=== PATIENT | male | born 1965 | race Caucasian/White ===

== ENCOUNTER 2018-11-20 12:42 | Observation (INO) | payer MEDICARE ==
[~2018-11-20] VITALS: Ht 185.4 cm; Wt 68.0 kg
[2018-11-20] MEDS ORDERED: PROZAC10 MG PO (12:55)
[2018-11-20] MEDS ORDERED: XANAX1 MG PO (12:55)
[2018-11-20 13:12] VITALS: BP 113/77
[2018-11-20 13:28] LABS: BASOPHILS 0.2 % (0-2); EOSINOPHILS 0 % (0-7); HEMOGLOBIN 18.3 g/dL (13.5-17.5); IMMATURE GRANULOCYTES 0.2 % (0-5); LYMPHOCYTES 22.7 % (15-50); MCH 38.1 pg (26.0-34.0); MCHC 38.1 g/dL (31.0-37.0); MEAN PLATELET VOLUME 11.2 fL (7.4-10.4); MONOCYTES 13.3 % (2-11); NEUTROPHILS 63.6 % (40-80); PLATELET COUNT 140 10x3/uL (130-400); RDW 12.7 % (11.5-14.5); WBC 5.4 10x3/uL (4.8-10.8)
[2018-11-20 13:41] LABS: APTT 29.7 SECONDS (22.8-39.4)
[2018-11-20 13:52] LABS: ALBUMIN 3.3 g/dL (3.4-5.0); ALKALINE PHOSPHATASE 88 U/L (46-116); ALT (SGPT) 18 U/L (10-68); BILIRUBIN - TOTAL 0.32 mg/dL (0.2-1.3); CALC OSMOLALITY 264 mosm/kg (275-300); CALCIUM 8.2 mg/dL (8.5-10.1); CHLORIDE - SERUM 101 mmol/L (98-107); CREATININE - SERUM 0.9 mg/dL (0.6-1.3); GLUCOSE 92 mg/dL (74-106); POTASSIUM - SERUM 3.1 mmol/L (3.5-5.1); SODIUM 134 mmol/L (136-145); UREA NITROGEN 5 mg/dL (7-18); eGFR NON AFRICAN AMERICAN > 90 mL/min (90-120)
[2018-11-20 14:00] LABS: CKMB 0.4 U/L (0.0-3.6); CREATINE KINASE 68 UL (21-232); MAGNESIUM - SERUM 1.8 mg/dL (1.8-2.4); TROPONIN-I < 0.017 ng/mL (0.000-0.060)
[2018-11-20 14:03] LABS: INR 1.03 (0.85-1.17)
--- NOTE | 2018-11-20 14:42 | NUR ---
PATIENT ASKED RN TO CALL MOTHER IN LAW, ROHAN BERNAL AT [phone]. TO INFORM THAT HE WILL BE ADMITTED FOR OBSERVATION.
--- NOTE | 2018-11-20 15:20 | NUR ---
PATIENT TO BE ADMITTED TO ROOM 2112. ATTEMPTED TO CALL REPORT AT EXT [phone]. TEVIN PLACED ME ON HOLD. WILL CONTINUE TO ATTEMPT HAND-OFF.
--- NOTE | 2018-11-20 15:52 | NUR ---
REPORT CALLED TO AALIYAH PITT. NO QUESTIONS. NO JARRELL IN THE ROOM, BUT WILL LET US KNOW WHEN IT'S AVAILABLE.
--- NOTE | 2018-11-20 16:03 | NUR ---
1553-RECEIVED REPORT FROM ED.
--- NOTE | 2018-11-20 17:02 | NUR ---
RECEIVED TO ROOM VIA WHEELCHAIR. PLACED ON HEART MONITOR. SALINE LOCK SEEN TO LEFT FA, FLUSHES WELL. STATES THAT HE NEEDS SOME MEDS FOR ANXIETY.
[2018-11-20 17:04] VITALS: BP 132/97; BMI 19.8
--- NOTE | 2018-11-20 17:26 | NUR ---
PLACED ON HEART MONITOR SHOWING ST, HR 115.
--- NOTE | 2018-11-20 17:28 | NUR ---
I CALLED FOR NEW ORDERS FOR PATIENT HE STATES THE LIBRUIM IS NOT WORKING AND HE IS "FREAKING OUT". I SPOKE WITH NATALIIA CHARLES AND RECEIVED A ONE TIME DOSE OF IV ATIVAN.
[2018-11-20 17:56] VITALS: BP 132/97
--- NOTE | 2018-11-20 17:58 | NUR ---
CALLED ARACELI IN THE PHARMACY TO RE-TIME THE LIBRUIM HE RECEIVED A DOSE IN THE ED AT 1506.
--- NOTE | 2018-11-20 18:08 | NUR ---
URINE FOR UA AND UDS SENT TO LAB ORDERED.
[2018-11-20 18:20] LABS: APPEARANCE CLEAR (CLEAR); BILIRUBIN NEGATIVE (NEGATIVE); COLOR YELLOW (YELLOW); GLUCOSE NEGATIVE (NEGATIVE); KETONE NEGATIVE (NEGATIVE); NITRITE NEGATIVE (NEGATIVE); PROTEIN NEGATIVE (NEGATIVE); SPECIFIC GRAVITY 1.015 (1.005-1.020); UROBILINOGEN NORMAL (NORMAL)
[2018-11-20 18:21] LABS: WHITE CELLS - URINE OCC /hpf (0-5)
[2018-11-20 18:22] LABS: BACTERIA FEW /hpf (NONE SEEN); MUCUS <1+ /lpf (NONE SEEN)
[2018-11-20 18:25] LABS: UDS - AMPHET NEGATIVE QUAL (NEGATIVE); UDS - BARB NEGATIVE QUAL (NEGATIVE); UDS - BENZO NEGATIVE QUAL (NEGATIVE); UDS - COCAINE NEGATIVE QUAL (NEGATIVE); UDS - OPIATE NEGATIVE QUAL (NEGATIVE); UDS - PCP NEGATIVE QUAL (NEGATIVE); UDS - THC POSITIVE QUAL (NEGATIVE)
[2018-11-20 20:00] VITALS: BP 112/76
[2018-11-20 20:14] LABS: CKMB 0.7 U/L (0.0-3.6); CREATINE KINASE 73 UL (21-232)
[2018-11-20 20:15] LABS: TROPONIN-I < 0.017 ng/mL (0.000-0.060)
--- NOTE | 2018-11-20 23:19 | NUR ---
PT RESTING IN BED. EYES CLOSED. NO SIGNS OF DISTRESS. BREATHING EVEN AND UNLABORED. IV SITE LT FA DRESSING CLEAN DRY AND INTACT. NO SIGNS OF INFECTION. BOWEL SOUNDS ACTIVE. NO LOWER LEG SWELLING PRESENT. SKIN CLEAN DRY AND INTACT. LUNG SOUNDS CLEAR. WILL CONTINUE PLAN OF CARE. CALL LIGHT IN REACH. BED LOWERED AND LOCKED. BED RAILS UP X2.
[2018-11-21] VITALS: BP 121/81
[2018-11-21 02:12] LABS: BASOPHILS 0.6 % (0-2); EOSINOPHILS 3.2 % (0-7); HEMATOCRIT 38.9 % (42.0-54.0); IMMATURE GRANULOCYTES 0.3 % (0-5); LYMPHOCYTES 28.2 % (15-50); MCH 36.2 pg (26.0-34.0); MCHC 35.5 g/dL (31.0-37.0); MEAN PLATELET VOLUME 10.7 fL (7.4-10.4); MONOCYTES 11.4 % (2-11); NEUTROPHILS 56.3 % (40-80); PLATELET COUNT 117 10x3/uL (130-400); RBC 3.81 10x6/uL (4.20-6.10); RDW 12.7 % (11.5-14.5); WBC 3.2 10x3/uL (4.8-10.8)
[2018-11-21 02:13] LABS: HEMOGLOBIN 13.8 g/dL (13.5-17.5); MCV 102.1 fL (80.0-100.0)
[2018-11-21 03:00] LABS: HEMATOCRIT 43.9 % (42.0-54.0)
[2018-11-21 03:17] LABS: ALBUMIN 2.6 g/dL (3.4-5.0); ALKALINE PHOSPHATASE 77 U/L (46-116); ALT (SGPT) 15 U/L (10-68); BILIRUBIN - TOTAL 0.47 mg/dL (0.2-1.3); CALC OSMOLALITY 269 mosm/kg (275-300); CALCIUM 7.8 mg/dL (8.5-10.1); CARBON DIOXIDE 28.1 mmol/L (21.0-32.0); CHLORIDE - SERUM 104 mmol/L (98-107); CKMB 0.5 U/L (0.0-3.6); CREATINE KINASE 42 UL (21-232); CREATININE - SERUM 0.9 mg/dL (0.6-1.3); GLUCOSE 94 mg/dL (74-106); MAGNESIUM - SERUM 2.2 mg/dL (1.8-2.4); PHOSPHOROUS 3.5 mg/dL (2.5-4.9); POTASSIUM - SERUM 3.8 mmol/L (3.5-5.1); PROTEIN - SERUM 6.1 g/dL (6.4-8.2); SODIUM 135 mmol/L (136-145); TROPONIN-I < 0.017 ng/mL (0.000-0.060); UREA NITROGEN 12 mg/dL (7-18); eGFR NON AFRICAN AMERICAN > 90 mL/min (90-120)
[2018-11-21 04:00] VITALS: BP 139/93
[2018-11-21 08:43] VITALS: Ht 185.4 cm; Wt 68.0 kg
[2018-11-21 08:53] VITALS: BP 150/95
--- NOTE | 2018-11-21 11:46 | MORECARE ---
CASE MANAGEMENT DISCHARGE SUMMARY PATIENT: RAMON HAGAN UNIT: [id number] ADM DATE: 11/20/18 AGE: 53 : 63 SEX: M ROOM/BED: D.[facility] AUTHOR: KHADRA MATOS PHYSICIAN: REFERRING PHYSICIAN: ÁLVARO CACERES MD DATE OF SERVICE: 11/21/18 Discharge Plan Patient Name: RAMON HAGAN Facility: [facility]:[place] : 1965 Planned Disposition: Home Anticipated Discharge Date: 11/21/18 Discharge Date: Expected LOS: 1 Initial Reviewer: [email or web address] Initial Review Date: 11/20/2018 Generated: 11/21/18 12:46 pm DCPIA - Discharge Planning Initial Assessment Updated by [email or web address]: Megan Ward on 11/21/18 11:45 am * Is the patient Alert and Oriented? Yes * PCP No PCP * Pharmacy [facility] on [address] * Preadmission Environment Home with Family * ADLs Independent * Equipment None * List name and contact numbers for known caregivers / representatives who currently or will assist patient after discharge: Kavon Wells - son in law - [phone] * Verbal permission to speak to the caregivers and representatives has been obtained from the patient. Yes * Community resources currently utilized None * Additional services required to return to the preadmission environment? No * Can the patient safely return to the preadmission environment? Yes * Has this patient been hospitalized within the prior 30 days at any hospital? No Patient Name: RAMON HAGAN Page [id number] at 1146 All edits/amendments must be made on the electronic document DICTATION DATE: 11/21/18 1146 BUILDING CONSTRUCTION ENGINEER: ARCHIE 11/21/18 1146 RPT#: [id number] DC DATE: STATUS: ADM IN [facility] [address] [place] [address] END OF REPORT
--- NOTE | 2018-11-21 11:53 | MORECARE ---
CASE MANAGEMENT DISCHARGE SUMMARY PATIENT: RAMON HAGAN UNIT: [id number] ADM DATE: 11/20/18 AGE: 53 : 63 SEX: M ROOM/BED: D.2113 AUTHOR: KHADRA MATOS PHYSICIAN: REFERRING PHYSICIAN: ÁLVARO CACERES MD DATE OF SERVICE: 11/21/18 Discharge Plan Patient Name: RAMON HAGAN Facility: [facility]:[place] : 1965 Planned Disposition: Home Anticipated Discharge Date: 11/21/18 Discharge Date: Expected LOS: 1 Initial Reviewer: [email or web address] Initial Review Date: 11/20/2018 Generated: 11/21/18 12:52 pm Comments DCP- Discharge Planning Updated by [email or web address]: Megan Ward on 11/21/18 10:[address] DC PLAN: Home with son in law. ANTICIPATED DC NEEDS: Resources given on [facility] and PCP option. CM met with patient to complete initial dc planning assessment. CM educated patient on the CM role and verbal consent given by patient to complete assessment. CM verified patient's address, phone number, and emergency contact phone numbers. Patient lives at home independently with his son in law. At discharge patient plans to return home with his son in law and feels this is a safe discharge. CM discussed availability of home health, rehab services, and medical equipment. CM provided patient with information on [facility], Number for Dr. Hussein office to inquirea abot a PCP, and information on [facility]. Patient denied further known discharge needs at this time. Patient reports his son in law will transport him home at time of discharge. CM also spoke to [employer] who stated Darius met with the patient and he has [place] [employer] now. CM informed the patient of this information. CM will continue to follow and will assist as needed with dc plans/needs. Megan Ward RN, [facility] DCPIA - Discharge Planning Initial Assessment Updated by [email or web address]: Megan Ward on 11/21/18 11:45 am * Is the patient Alert and Oriented? Yes * PCP No PCP * Pharmacy [facility] [address] * Preadmission Environment Home with Family * ADLs Independent * Equipment None * List name and contact numbers for known caregivers / representatives who currently or will assist patient after discharge: Kavon Wells - son in law - [phone] * Verbal permission to speak to the caregivers and representatives has been obtained from the patient. Yes * Community resources currently utilized None * Additional services required to return to the preadmission environment? No * Can the patient safely return to the preadmission environment? Yes * Has this patient been hospitalized within the prior 30 days at any hospital? No Last DP export: 11/21/18 10:46 a Patient Name: RAMON HAGAN Page [phone] at 1153 All edits/amendments must be made on the electronic document DICTATION DATE: 11/21/181151 SERVICE OR WORK DISPATCHER CHIEF: ARCHIE 11/21/181151 RPT#: [id number] DC DATE: STATUS: ADM IN [facility] [address] [place] [address] END OF REPORT
[2018-11-21] MEDS ORDERED: PROZAC10 MG PO (13:26)
[2018-11-21] MEDS ORDERED: KLONOPIN1 MG PO (13:27)
--- NOTE | 2018-11-21 13:37 | NUR ---
SPOKE TO PT RE REFERRAL TO [facility]. DECLINED.
[2018-11-21 13:54] VITALS: BP 164/89
--- NOTE | 2018-11-21 14:51 | NUR ---
DISCHARGE INSTRUCTIONS REVIEWED WITH PT AND VERBALIZES UNDERSTANDING WITH NO QUESTIONS. SL REMOVED FROM RIGHT FOREARM WITH CATH TIP INTACT. LEFT FLOOR WITH ALL BELONGINGS VIA W/C AND LEFT FACILITY VIA PRIVATE VEHICLE WITH FAMILY MEMBER.
--- NOTE | 2018-11-23 08:08 | MORECARE ---
CASE MANAGEMENT DISCHARGE SUMMARY PATIENT: RAMON HAGAN UNIT: [id number] ADM DATE: 11/20/18 AGE: 53 : 63 SEX: M ROOM/BED: D.2113 AUTHOR: SHAWNA,DOC PHYSICIAN: REFERRING PHYSICIAN: ÁLVARO CACERES MD DATE OF SERVICE: 11/23/18 Discharge Plan Patient Name: RAMON HAGAN Facility: [facility]:[place] : 1965 Planned Disposition: Home Anticipated Discharge Date: 11/21/18 Discharge Date: 11/21/2018 Expected LOS: 1 Initial Reviewer: [email or web address] Initial Review Date: 11/20/2018 Generated: 11/23/18 9:08 am DCP- Discharge Planning Updated by [email or web address]: Megan Ward on 11/21/18 10:[address] DC PLAN: Home with son in law. ANTICIPATED DC NEEDS: Resources given on [facility] and PCP option. CM met with patient to complete initial dc planning assessment. CM educated patient on the CM role and verbal consent given by patient to complete assessment. CM verified patient's address, phone number, and emergency contact phone numbers. Patient lives at home independently with his son in law. At discharge patient plans to return home with his son in law and feels this is a safe discharge. CM discussed availability of home health, rehab services, and medical equipment. CM provided patient with information on [facility] health [facility], Number for Dr. Hussein office to inquirea abot a PCP, and information on [facility]. Patient denied further known discharge needs at this time. Patient reports his son in law will transport him home at time of discharge. CM also spoke to [employer] who stated Darius met with the patient and he has [place] Medicaid now. CM informed the patient of this information. CM will continue to follow and will assist as needed with dc plans/needs. Megan Ward RN, [facility] DCPIA - Discharge Planning Initial Assessment Updated by [email or web address]: Megan Ward on 11/21/18 11:45 am * Is the patient Alert and Oriented? Yes * PCP No PCP * Pharmacy [facility] on [address] * Preadmission Environment Home with Family * ADLs Independent * Equipment None * List name and contact numbers for known caregivers / representatives who currently or will assist patient after discharge: Kavon Wells - son in law - [phone] * Verbal permission to speak to the caregivers and representatives has been obtained from the patient. Yes * Community resources currently utilized None * Additional services required to return to the preadmission environment? No * Can the patient safely return to the preadmission environment? Yes * Has this patient been hospitalized within the prior 30 days at any hospital? No Last DP export: 11/21/18 10:53 a Patient Name: RAMON HAGAN Page [phone] at 0808 All edits/amendments must be made on the electronic document DICTATION DATE: 11/23/18807 BUOY TENDER: ARCHIE 11/23/18807 RPT#: [id number] DC DATE:11/21/18 STATUS: DIS IN [facility] [address] [place] [address] END OF REPORT
== END 2018-11-21 15:13 | disposition home or self-care (01) ==
LOC: D.ER 12:42 → D.M2 15:07 → OBSVTIME 21:00 → D.M2 11-21 15:13
PROVIDERS: Family Medicine; ADMIT Internal Medicine Nephrology; ATTEND Internal Medicine Nephrology
DX: F19.939 Other psychoactive substance use, unspecified with withdrawal, unspecified (principal); I20.9 Angina pectoris, unspecified; F41.9 Anxiety disorder, unspecified; D64.9 Anemia, unspecified; E87.6 Hypokalemia; E87.1 Hypo-osmolality and hyponatremia; I10 Essential (primary) hypertension; E78.5 Hyperlipidemia, unspecified; F17.213 Nicotine dependence, cigarettes, with withdrawal

== ENCOUNTER 2018-11-22 01:10 | Emergency (ER) | payer MEDICARE ==
[~2018-11-22] VITALS: Ht 185.4 cm; Wt 70.5 kg
[~2018-11-22 01:10] MED LIST: KLONOPIN1 MG PO; PROZAC10 MG PO; XANAX1 MG PO
[2018-11-22 01:11] VITALS: Ht 185.4 cm; Wt 70.5 kg
[2018-11-22 01:26] LABS: BASOPHILS 0.3 % (0-2); EOSINOPHILS 2.6 % (0-7); HEMATOCRIT 45.8 % (42.0-54.0); HEMOGLOBIN 16.9 g/dL (13.5-17.5); IMMATURE GRANULOCYTES 0.2 % (0-5); LYMPHOCYTES 31.3 % (15-50); MCH 36.9 pg (26.0-34.0); MCHC 36.9 g/dL (31.0-37.0); MEAN PLATELET VOLUME 10.8 fL (7.4-10.4); MONOCYTES 9.6 % (2-11); PLATELET COUNT 142 10x3/uL (130-400); RBC 4.58 10x6/uL (4.20-6.10); RDW 12.5 % (11.5-14.5); WBC 5.8 10x3/uL (4.8-10.8)
[2018-11-22 01:34] LABS: INR 1.03 (0.85-1.17)
[2018-11-22 01:39] LABS: APTT 36.5 SECONDS (22.8-39.4)
[2018-11-22 01:42] LABS: ALBUMIN 3.3 g/dL (3.4-5.0); ALKALINE PHOSPHATASE 82 U/L (46-116); ALT (SGPT) 19 U/L (10-68); CALC OSMOLALITY 270 mosm/kg (275-300); CALCIUM 8.2 mg/dL (8.5-10.1); CARBON DIOXIDE 25.7 mmol/L (21.0-32.0); CHLORIDE - SERUM 102 mmol/L (98-107); CREATININE - SERUM 0.8 mg/dL (0.6-1.3); GLUCOSE 82 mg/dL (74-106); POTASSIUM - SERUM 3.3 mmol/L (3.5-5.1); PROTEIN - SERUM 6.8 g/dL (6.4-8.2); SODIUM 137 mmol/L (136-145); UREA NITROGEN 7 mg/dL (7-18); eGFR NON AFRICAN AMERICAN > 90 mL/min (90-120)
[2018-11-22 01:53] LABS: CKMB 0.7 U/L (0.0-3.6); CREATINE KINASE 56 UL (21-232); MAGNESIUM - SERUM 1.7 mg/dL (1.8-2.4)
[2018-11-22 01:54] LABS: TROPONIN-I < 0.017 ng/mL (0.000-0.060)
[2018-11-22 02:16] LABS: APPEARANCE CLEAR (CLEAR); BILIRUBIN NEGATIVE (NEGATIVE); COLOR YELLOW (YELLOW); GLUCOSE NEGATIVE (NEGATIVE); KETONE NEGATIVE (NEGATIVE); NITRITE NEGATIVE (NEGATIVE); PROTEIN NEGATIVE (NEGATIVE); UROBILINOGEN NORMAL (NORMAL)
[2018-11-22 02:25] LABS: UDS - AMPHET NEGATIVE QUAL (NEGATIVE); UDS - BARB NEGATIVE QUAL (NEGATIVE); UDS - BENZO POSITIVE QUAL (NEGATIVE); UDS - COCAINE NEGATIVE QUAL (NEGATIVE); UDS - OPIATE NEGATIVE QUAL (NEGATIVE); UDS - PCP NEGATIVE QUAL (NEGATIVE); UDS - THC NEGATIVE QUAL (NEGATIVE)
[2018-11-22 06:01] VITALS: BP 132/88
== END 2018-11-22 06:04 | disposition home or self-care (01) ==
LOC: D.ER 01:10
PROVIDERS: Family Medicine
DX: R07.9 Chest pain, unspecified (principal); F41.9 Anxiety disorder, unspecified; F10.10 Alcohol abuse, uncomplicated; F17.200 Nicotine dependence, unspecified, uncomplicated

== ENCOUNTER 2018-12-02 19:29 | Emergency (ER) | payer MEDICARE ==
[~2018-12-02] VITALS: Ht 185.4 cm; Wt 75.0 kg
[2018-12-02 19:32] VITALS: BP 146/112; Ht 185.4 cm; Wt 75.0 kg
== END 2018-12-02 22:18 | disposition left against medical advice (07) ==
LOC: D.ER 19:29
DX: Z72.89 Other problems related to lifestyle (principal); I25.10 Atherosclerotic heart disease of native coronary artery without angina pectoris; I10 Essential (primary) hypertension; F17.210 Nicotine dependence, cigarettes, uncomplicated

== ENCOUNTER 2018-12-16 20:26 | Emergency (ER) | payer MEDICARE ==
[~2018-12-16] VITALS: Ht 185.4 cm; Wt 63.6 kg
[2018-12-16 20:38] VITALS: BP 132/100; Ht 185.4 cm; Wt 63.6 kg
== END 2018-12-16 20:47 | disposition left against medical advice (07) ==
LOC: D.ER 20:26
DX: R07.9 Chest pain, unspecified (principal); F10.129 Alcohol abuse with intoxication, unspecified

== ENCOUNTER 2018-12-19 22:02 | Emergency (ER) | payer MEDICARE ==
[~2018-12-19] VITALS: Ht 185.4 cm; Wt 81.8 kg
[2018-12-19 22:08] VITALS: BP 142/108; Ht 185.4 cm; Wt 81.8 kg
[2018-12-19 22:50] LABS: BASOPHILS 0.4 % (0-2); EOSINOPHILS 1.4 % (0-7); HEMATOCRIT 46.4 % (42.0-54.0); HEMOGLOBIN 16.1 g/dL (13.5-17.5); IMMATURE GRANULOCYTES 0.1 % (0-5); LYMPHOCYTES 31.5 % (15-50); MCHC 34.7 g/dL (31.0-37.0); MCV 103.8 fL (80.0-100.0); MEAN PLATELET VOLUME 10.9 fL (7.4-10.4); MONOCYTES 6.5 % (2-11); NEUTROPHILS 60.1 % (40-80); RBC 4.47 10x6/uL (4.20-6.10); RDW 12.7 % (11.5-14.5); WBC 7.8 10x3/uL (4.8-10.8)
[2018-12-19 22:51] LABS: PLATELET COUNT 229 10x3/uL (130-400)
[2018-12-19 23:02] LABS: APTT 24.8 SECONDS (22.8-39.4); INR 0.92 (0.85-1.17); PROTIME 11.9 SECONDS (11.6-15.0)
[2018-12-19 23:03] LABS: ALBUMIN 3.6 g/dL (3.4-5.0); ALKALINE PHOSPHATASE 62 U/L (46-116); ALT (SGPT) 14 U/L (10-68); BILIRUBIN - TOTAL 0.26 mg/dL (0.2-1.3); CALC OSMOLALITY 288 mosm/kg (275-300); CALCIUM 8.7 mg/dL (8.5-10.1); CARBON DIOXIDE 28.9 mmol/L (21.0-32.0); CHLORIDE - SERUM 107 mmol/L (98-107); CREATININE - SERUM 0.7 mg/dL (0.6-1.3); GLUCOSE 85 mg/dL (74-106); POTASSIUM - SERUM 3.3 mmol/L (3.5-5.1); PROTEIN - SERUM 7.6 g/dL (6.4-8.2); SODIUM 146 mmol/L (136-145); UREA NITROGEN 10 mg/dL (7-18); eGFR NON AFRICAN AMERICAN > 90 mL/min (90-120)
[2018-12-19 23:04] LABS: UDS - AMPHET NEGATIVE QUAL (NEGATIVE); UDS - BARB NEGATIVE QUAL (NEGATIVE); UDS - BENZO POSITIVE QUAL (NEGATIVE); UDS - COCAINE NEGATIVE QUAL (NEGATIVE); UDS - OPIATE NEGATIVE QUAL (NEGATIVE); UDS - PCP NEGATIVE QUAL (NEGATIVE); UDS - THC NEGATIVE QUAL (NEGATIVE)
[2018-12-19 23:22] LABS: CKMB 2.4 U/L (0.0-3.6); CREATINE KINASE 98 UL (21-232); TROPONIN-I < 0.017 ng/mL (0.000-0.060)
== END 2018-12-19 23:48 | disposition left against medical advice (07) ==
LOC: D.ER 22:02
PROVIDERS: Family Medicine
DX: F10.10 Alcohol abuse, uncomplicated (principal); Z65.8 Other specified problems related to psychosocial circumstances

== ENCOUNTER 2018-12-21 20:27 | Emergency (ER) | payer MEDICARE ==
[~2018-12-21] VITALS: Ht 185.4 cm; Wt 52.3 kg
[2018-12-21 20:40] VITALS: Ht 185.4 cm; Wt 52.3 kg
[2018-12-21 21:06] LABS: BASOPHILS 0.2 % (0-2); EOSINOPHILS 0.9 % (0-7); HEMATOCRIT 47.2 % (42.0-54.0); HEMOGLOBIN 16.7 g/dL (13.5-17.5); IMMATURE GRANULOCYTES 0.2 % (0-5); LYMPHOCYTES 28.8 % (15-50); MCH 36.3 pg (26.0-34.0); MCHC 35.4 g/dL (31.0-37.0); MCV 102.6 fL (80.0-100.0); MEAN PLATELET VOLUME 10.5 fL (7.4-10.4); MONOCYTES 5.1 % (2-11); NEUTROPHILS 64.8 % (40-80); PLATELET COUNT 236 10x3/uL (130-400); RDW 12.9 % (11.5-14.5)
[2018-12-21 21:09] LABS: WBC 5.7 10x3/uL (4.8-10.8)
[2018-12-21 21:15] LABS: APTT 28.1 SECONDS (22.8-39.4); INR 0.93 (0.85-1.17)
[2018-12-21 21:42] LABS: ALBUMIN 3.8 g/dL (3.4-5.0); ALKALINE PHOSPHATASE 76 U/L (46-116); BILIRUBIN - TOTAL 0.38 mg/dL (0.2-1.3); CALCIUM 8.6 mg/dL (8.5-10.1); CARBON DIOXIDE 26.8 mmol/L (21.0-32.0); CHLORIDE - SERUM 101 mmol/L (98-107); GLUCOSE 82 mg/dL (74-106); POTASSIUM - SERUM 3.4 mmol/L (3.5-5.1); PROTEIN - SERUM 7.9 g/dL (6.4-8.2); SODIUM 139 mmol/L (136-145)
[2018-12-21 21:53] LABS: AMYLASE - SERUM 51 U/L (25-115); CKMB 1.5 U/L (0.0-3.6); CREATINE KINASE 172 UL (21-232); LIPASE 145 U/L (73-393); MAGNESIUM - SERUM 1.8 mg/dL (1.8-2.4)
[2018-12-21 21:58] LABS: ALT (SGPT) 18 U/L (10-68); CALC OSMOLALITY 274 mosm/kg (275-300); CREATININE - SERUM 1.1 mg/dL (0.6-1.3); TROPONIN-I < 0.017 ng/mL (0.000-0.060); UREA NITROGEN 7 mg/dL (7-18); eGFR NON AFRICAN AMERICAN 74 mL/min (90-120)
[2018-12-21] MEDS ORDERED: LIBRIUM25 MG PO (22:33)
[2018-12-21 22:34] VITALS: BP 115/90
== END 2018-12-21 23:36 | disposition home or self-care (01) ==
LOC: D.ER 20:27
PROVIDERS: Family Medicine
DX: F10.229 Alcohol dependence with intoxication, unspecified (principal); F43.29 Adjustment disorder with other symptoms; F17.200 Nicotine dependence, unspecified, uncomplicated